=== PATIENT | female | born 1940 | race Two or more races ===

== ENCOUNTER 2017-06-01 08:03 | Outpatient (CLI) | payer OTHER | END 2017-06-01 08:14 | disposition home or self-care (01) | LOC: NUCLEAR 08:03 | DX: I25.10 Atherosclerotic heart disease of native coronary artery without angina pectoris (principal) ==

== ENCOUNTER 2020-06-27 08:09 | Outpatient (CLI) | payer OTHER | END 2020-06-27 08:12 | disposition home or self-care (01) | LOC: SONOGRAMA 08:09 | PROVIDERS: ATTEND Pathology Anatomic Pathology & Clinical Pathology | DX: D34 Benign neoplasm of thyroid gland (principal); E04.8 Other specified nontoxic goiter; E04.2 Nontoxic multinodular goiter ==

== ENCOUNTER 2024-09-07 15:28 | Outpatient (CLI) | payer OTHER | END 2024-09-07 15:33 | disposition home or self-care (01) | LOC: SONOGRAMA 15:28 | PROVIDERS: ATTEND Pathology Anatomic Pathology & Clinical Pathology | DX: D44.0 Neoplasm of uncertain behavior of thyroid gland (principal) ==